=== PATIENT | female | born 1995 | race Hispanic/Latino ===

== ENCOUNTER → 2017-06-27 | Outpatient (CLI) | payer OTHER ==
[2017-06-27 10:23] LABS: ESTRADIOL 245.1 PG/ML; PROGESTERONE 27.9 NG/ML
== END ==
LOC: M LAB 09:11
PROVIDERS: ATTEND Obstetrics & Gynecology Reproductive Endocrinology
DX: N97.9 Female infertility, unspecified (principal)

== ENCOUNTER 2018-02-05 08:21 | Emergency (ER) | payer OTHER | END 2018-02-05 09:14 | disposition home or self-care (01) | LOC: M ED 08:21 | DX: H66.001 Acute suppurative otitis media without spontaneous rupture of ear drum, right ear (principal) | CPT/HCPCS: 99282 ==